=== PATIENT | male | born 1970 | race Caucasian/White ===

== ENCOUNTER 2017-12-13 09:06 | Day surgery (SDC) | payer MEDICARE ==
[2016-06-22 13:48] VITALS: PULSE 75
[2017-12-12 13:53] VITALS: BMI 38.5
[2017-12-13] MEDS ORDERED: Propofol 10 mg/ml Inj (20 ML) ONE (11:11)
--- NOTE | 2017-12-13 11:12 | CP.SDSHP ---
Same Day Surgery H & P - History Proposed Procedure: COLONSCOPY Pre-Op Diagnosis: SEE NOTES - Previous Medical/Surgical History Cardiac: Hypertension, Arrhythmia Pulmonary: Asthma Endocrine/Metabolic: Other Neuro: Other Misc: Other Pain: 4.Moderate Pain - Allergies Allergies: Allergies No Known Allergies Allergy (Verified 12/12/17 13:53) - Physical Exam General Appearance: N Vital Signs: Vital Signs 12/13/17 09:49 Temperature 97.0 F L Pulse Rate 80 Respiratory 20 Rate Blood Pressure 132/89 O2 Sat by Pulse 98 Oximetry Mental Status: Alert & Oriented x3 Neuro: WNL Heart: Other Lungs: Other GI: WNL - {Optional Preform as Required} Breast: WNL Abdomen: Other Rectal: Other Integument: WNL : WNL Ortho: Other ENT: WNL - Impression Pt. Evaluated Today:Candidate for Anesthesia & Procedure: Yes - Date & Time Time: 11:12 Short Stay Discharge - Short Stay Discharge Admitting Diagnosis/Reason for Visit: RECTAL BLEEDING Disposition: HOME/ ROUTINE
[2017-12-13] MEDS ORDERED: Lactated Ringer's 500 ML IV SCH (11:15)
[2017-12-13 11:45] VITALS: TEMP 98.4
[2017-12-13 12:39] VITALS: BP 132/85; PULSE 73; RESP 25; O2SAT 98
== END 2017-12-13 12:34 | disposition home or self-care (01) ==
LOC: C.ENDO 09:06
PROVIDERS: ATTEND Specialist
DX: K51.511 Left sided colitis with rectal bleeding (principal)
CPT/HCPCS: 45380; 88305; J2704; J7120